=== PATIENT | female | born 1990 | race Caucasian/White ===

== ENCOUNTER 2021-01-30 15:01 | Inpatient (IN) | payer OTHER ==
[~2021-01-30] VITALS: Ht 162.6 cm; Wt 71.8 kg
--- NOTE | 2021-01-30 16:05 | NUR ---
BIBS FROM WORK TO ER BED 6. AAXO4. NOT IN RESP DISTRESS, BREATHING EVEN AND UNLABORED. AMBULATORY ON STEADY. CAME IN FOR VISION LOSS AND INABILITY TO SPEAK WHICH SHE NOTED AROUN 1100 TODAY WHICH IS NOW RESOLVED. PT VERBALIZES THAT SHE BACK TO HER NORMAL. NO NEURO DEFICIT NOTED. PT ON MONITOR. MD WAS AT THE BEDSIDE FOR EVAL. ORDERS RECEIVED, NOTED AND CARRIED OUT. IV LINE ESTABLISHED ON THE L AC 20G, BLOOD DRAWN AND GIVEN TO PHLEBWILL CONTINUE TO MONITOR
[2021-01-30 16:09] LABS: BASOPHILS % (AUTO) 0.5 % (0.0-2.0); EOSINOPHILS % (AUTO) 0.6 % (0.0-6.0); HEMATOCRIT 40 % (33-45); HEMOGLOBIN 13.6 g/dL (11.5-14.8); LYMPHOCYTES # (AUTO) 1.8 K/uL (0.8-4.8); LYMPHOCYTES % (AUTO) 20.2 % (20.0-44.0); MEAN CORPUSCULAR HGB CONC 34 g/dl (31.0-36.0); MEAN CORPUSCULAR VOLUME 87 fL (82-100); MONOCYTES # (AUTO) 0.4 K/uL (0.1-1.30); MONOCYTES % (AUTO) 5.1 % (2.0-12.0); NEUTROPHILS # (AUTO) 6.4 K/uL (1.8-8.9); NEUTROPHILS % (AUTO) 73.6 % (43.0-81.0); PLATELET COUNT (AUTO) 222 K/uL (150-450); RED BLOOD CELL COUNT(AUTO) 4.56 MIL/uL (4.0-5.2); WHITE BLOOD COUNT (AUTO) 8.7 K/uL (4.3-11.0)
[2021-01-30 16:29] LABS: CALCIUM, SERUM 9.3 mg/dL (8.5-10.1); CARBON DIOXIDE 27 mmol/L (21-32); CHLORIDE 105 mmol/L (98-107); CREATININE 0.7 mg/dL (0.6-1.3); GLUCOSE 97 mg/dL (74-106); POTASSIUM 3.6 mmol/L (3.5-5.1); SODIUM SERUM 141 mmol/L (136-145); UREA NITROGEN, BLOOD 9 mg/dL (7-18)
[2021-01-30 16:33] LABS: ALCOHOL, BLOOD < 3 mg/dL (0-0)
[2021-01-30] MEDS ORDERED: IOHEXOL-350 100 ML VIAL IV ONE (16:36)
[2021-01-30] MEDS ORDERED: IV NS 0.9% 250 ML IV ONE (16:37)
--- NOTE | 2021-01-30 18:28 | NUR ---
MD AT BEDSIDE TALKING TO PT
[2021-01-30] MEDS ORDERED: ASPIRIN 325 MG TABLET PO ONE (18:30)
[2021-01-30] MEDS ORDERED: ASPIRIN EC 325 MG TABLET.DR PO ONE (18:33)
--- NOTE | 2021-01-30 20:05 | NUR ---
REPORT GIVEN TO SHONDA PITTMAN. WILL TRANSPORT PT VIA ACLS PROTOCOL.
[2021-01-30 20:20] VITALS: BP 119/73
--- NOTE | 2021-01-30 20:20 | NUR ---
TELERN RECEIVED FROM ER A 30 Y/O FEMALE MAIN CC OF DIZZINESS AND BLURRY VISION STARTED THIS MORNING. A/O X4, DENIES ANY DISCOMFORTS OF THIS TIME. ORIENTED TO ROOM FACILITIES, CALL LIGHT USE REVIEWED WITH PATIENT. PLAN OF CARE AND MEDICATION REGIMEN DISCUSSED WITH PATIENT, APPEARS TO UNDERSTAND. ADMISSION ORDERS PENDING. ST ON THE MONITOR RATE OF 102. CONTINUED MONITORING.
[2021-01-30 20:30] VITALS: BP 119/73
--- NOTE | 2021-01-30 21:40 | NUR ---
TELERN PLACED CALL TO DR. REHMAN FOR ADMISSION ORDERS. INFORMED NO ORDERS YET FROM DR. Junior ALEMAN FROM THIS AFTERNOON. PER DR. REHMAN HE WILL CALL DR. ALEMAN. AWAITING.
[2021-01-30] MEDS ORDERED: MAGNESIUM HYDROXIDE 30 ML UDC PO PRN (23:00)
[2021-01-30] MEDS ORDERED: ZOLPIDEM TARTRATE 5 MG TABLET PO PRN (23:00)
[2021-01-30] MEDS ORDERED: Z GUARD REMEDY 2 OZ OINT TP PRN (23:00)
[2021-01-30] MEDS ORDERED: MAG HYDROX/AL HYDROX/SIMETH 30 ML UDC PO PRN (23:00)
[2021-01-30] MEDS ORDERED: ONDANSETRON HCL/PF 4 MG/2 ML VIAL IVP PRN (23:00)
[2021-01-30] MEDS ORDERED: ACETAMINOPHEN 325 MG TABLET PO PRN (23:00)
--- NOTE | 2021-01-30 23:20 | NUR ---
TELERN ORDERS IN. LABS ORDERED.
[2021-01-30] MEDS: BLOOD SUGAR DIAGNOSTIC 1 EACH STRIP IN SCH (23:47)
[2021-01-31] VITALS: BP 117/73
[2021-01-31 00:12] LABS: ALBUMIN 3.6 g/dL (3.4-5.0); BILIRUBIN,TOTAL 0.3 mg/dL (0.2-1.0); CALCIUM, SERUM 9.1 mg/dL (8.5-10.1); CREATININE 0.8 mg/dL (0.6-1.3); POTASSIUM 4.2 mmol/L (3.5-5.1); TOTAL PROTEIN, SERUM 7.1 g/dL (6.4-8.2)
[2021-01-31 00:15] LABS: THYROID STIMULATING HORMONE 2.592 uIU/mL (0.358-3.74)
--- NOTE | 2021-01-31 00:18 | NUR ---
TELERN BS WAS 110. REMAINS STABLE FOR NOW. SPEECH CLEAR, NO WEAKNESS, NO DISCOMFORTS VERBALIZED. STILL FULLY AWAKE, NEURO CHECKS ORDERED. REMINDED TO CALL STAFF FOR ANY ASISSTANCE OR DISCOMFORTS. CALL LIGHT WITHIN REACH. CONTINUED MONITORING
--- NOTE | 2021-01-31 06:30 | NUR ---
MSRClayton BS 92. EAGER TO GO HOME. INFORMED PATIENT NEUROLOGIST NEED TO EVALUATE HER . NO OTHER NEEDS MADE. NO WEAKNESS, SPEECH CLEAR. SAFETY PRECAUTIONS EMPHASIZED.
[2021-01-31 06:39] VITALS: BP 108/48
[2021-01-31 06:49] LABS: BASOPHILS % (AUTO) 0.3 % (0.0-2.0); EOSINOPHILS % (AUTO) 1.6 % (0.0-6.0); HEMATOCRIT 38 % (33-45); LYMPHOCYTES % (AUTO) 32.9 % (20.0-44.0); MEAN CORPUSCULAR HGB CONC 34 g/dl (31.0-36.0); MEAN CORPUSCULAR VOLUME 87 fL (82-100); MONOCYTES # (AUTO) 0.5 K/uL (0.1-1.30); MONOCYTES % (AUTO) 8.1 % (2.0-12.0); NEUTROPHILS # (AUTO) 3.5 K/uL (1.8-8.9); NEUTROPHILS % (AUTO) 57.1 % (43.0-81.0); PLATELET COUNT (AUTO) 207 K/uL (150-450); RED BLOOD CELL COUNT(AUTO) 4.37 MIL/uL (4.0-5.2); WHITE BLOOD COUNT (AUTO) 6.1 K/uL (4.3-11.0)
[2021-01-31 07:00] LABS: CALCIUM, SERUM 8.9 mg/dL (8.5-10.1); CREATININE 0.6 mg/dL (0.6-1.3); MAGNESIUM 2.1 mg/dL (1.8-2.4); PHOSPHORUS 4.4 mg/dL (2.5-4.9); POTASSIUM 3.6 mmol/L (3.5-5.1)
--- NOTE | 2021-01-31 07:25 | NUR ---
CAMERA ENGINEER OPENING NOTES RECEIVED PT RESTING IN BED IN NO ACUTE SIGNS OF DISTRESS. A/O X4. ABLE TO MAKE NEEDS KNOWN, DENIES PAIN OR ANY DISCOMFORTS, VERBALIZED THAT SHE HAS NO BODY WEAKNESS AT ALL AT THIS TIME. ON ROOM AIR, BREATHING EVEN AND UNLABORED. PT ON EXTERNAL CROSS CUT SAW OPERATOR WITH CURRENT READING OF NSR, HR 84, NO C/O CARDIAC DISTRESS VOICED. IV SL ON LAC G#20 INTACT, PATENT AND FLUSHES WELL. SAFETY MEASURES IN PLACE: BED IN LOWEST LOCKED POSITION WITH S/R UP X2. CALL LIGHT W/I EASY REACH OF PT. WILL CONTINUE TO MONITOR PT ACCORDINGLY.
[2021-01-31] MEDS: BLOOD SUGAR DIAGNOSTIC 1 EACH STRIP IN SCH ×6 (07:30→17:29)
[2021-01-31] MEDS ORDERED: ASPIRIN EC 325 MG TABLET.DR PO SCH (09:00)
[2021-01-31 09:53] VITALS: BP 109/65
--- NOTE | 2021-01-31 14:18 | NUR ---
Leak Detection Engineer Consultation 11:10am: Leak Detection Engineer consultation requested for TIA. Per ED physicians notes, patient came to the ED on 01/30/21 because she was experiencing blurred vision, dizziness, headache, forgetfulness, unable to express herself when she was talking to her colleagues at work. This [place] LINE ATTENDANT met with the patient, bedside in her hospital room. Patients mother and other family members were present in the room. This VIR[place] LINE ATTENDANT asked patient if patient was ok with this VIR[place] LINE ATTENDANT meeting with the patient with her family members in the room, and patient stated that it was fine for her family members to stay in the room. Patient is awake, alert, oriented, pleasant and cooperative with this [place]IR[place] LINE ATTENDANT. Patient is a 27 year old female. Patient reported blurry vision, headache, and slurred speech were the reasons she came to the ED. Patient stated she had never experience similar symptoms in the past, and that this was the first time. Patient is independent with ADLs and IADLs, works at [employer], and lives at home with her mother at [address] [place] [address]. Patients mother is Rafaela, . Patient reports no chronic medical problems, however stated she does take Adderall. Patient denied use of drugs or alcohol, denies smoking cigarettes. Patient denies hx of mental illness. This [place] LINE ATTENDANT administered the PHQ-9, and patient scored a 0 on it, stating that she has not experienced any recent changes in her mood or behavior. This [place] LINE ATTENDANT offered patient informational materials on stroke, titled Empowerment after Stroke and Caregivers Guide to Stroke. Patient was receptive of these resources, and took the informational materials. Discharge plans discussed, and patient stated that she will be returning back home. Patients affect and behavior during this interview was WNL. Patient maintained appropriate eye contact. Speech was clear, voice was normal.
[2021-01-31 16:00] VITALS: BP 119/71
--- NOTE | 2021-01-31 18:42 | NUR ---
SIGNING TEACHER CLOSING NOTES PT RESTING IN BED AT THIS TIME. A/O X4. ABLE TO MAKE NEEDS KNOWN. AMBULATORY WITH STEADY GAIT. ON ROOM AIR, TOLERATING WELL WITH NO SOB NOTED. PT REFUSED EXTERNAL DRAPERY INSPECTOR AT THIS TIME, NO C/O CARDIAC DISTRESS VOICED. IV SL ON LAC #20 INTACT, PATENT AND FLUSHES WELL. ALL NEEDS AND CARE ATTENDED WELL. SAFETY MEASURES MAINTAINED: BED IN LOWEST LOCKED POSITION WITH SIDE-RAILS UP X2. CALL LIGHT WITHIN EASY REACH OF PT. WILL ENDORSE KAVIN TO RN UROLOGY
--- NOTE | 2021-01-31 19:30 | NUR ---
ASSOCIATE PROFESSOR OF EDUCATION NOTES RECEIVED ON BED A/O X4,NO SOB,REFUSED TELE BOX,REFUSED TO HAVE NEW SALINE LOCK INSERTED.MRI BRAIN NO RESULT YET.PATIENT DECIDED TO STAY FOR THE NIGHT WHILE WAITING FOR THE MRI BRAIN RESULT.BOYFRIEND AT BEDSIDE.WILL CONTINUE TO MONITOR STATUS.
[2021-01-31 20:00] VITALS: BP 129/73
--- NOTE | 2021-01-31 20:00 | NUR ---
SHIP PILOT DISPATCHER NOTES HAD SHOWER PER PATIENT REQUEST.
--- NOTE | 2021-01-31 21:30 | NUR ---
REFUSE COLLECTOR SUPERVISOR NOTES MRI BRAIN RESULT IN, AND ITS NORMAL,PATIENT MADE AWARE,RESULT SENT TO DR PERALTA.PATIENT WITH DISCHARGE ORDER AND PATIENT WANTS TO GO HOME TONIGHT,JUST WAITING FOR THE MRI BRAIN RESULT.
--- NOTE | 2021-01-31 22:00 | NUR ---
GREY GOODS TESTER NOTES DISCHARGE PAPERS GIVEN,WENT HOME PICK BY BOYFRIEND WITH OWN TRANSPORTATION ,IN STABLE CONDITION.
== END 2021-01-31 22:00 | disposition home or self-care (01) | DRG 54 ==
LOC: ER 15:01 → TELE 20:03
PROVIDERS: ADMIT Family Medicine
DX: G43.109 Migraine with aura, not intractable, without status migrainosus (principal); G45.9 Transient cerebral ischemic attack, unspecified; F90.9 Attention-deficit hyperactivity disorder, unspecified type; Z20.822 Contact with and (suspected) exposure to COVID-19; R29.700 NIHSS score 0
CPT/HCPCS: 36415; 70496-TC; 70498-TC; 70551-TC; 71045-TC; 80048-TC; 80053-TC; 80061-TC; 82962-TC; 83735-TC; 83880; 84100-TC; 84443-TC; 84484-TC; 84702-TC; 84703-TC; 85025-TC; 85652-TC; 85730-TC; 87081-TC; 92526; 92611-TC; 93307-TC; 97116-TC; 97530-TC; C9803; G0378; G0480; J7050; Q9967